=== PATIENT | female | born 1990 | race African-American/Black ===

== ENCOUNTER 2017-12-27 09:10 | Day surgery (SDC) | payer OTHER ==
[2017-12-26 10:29] LABS: HEMATOCRIT 38.5 % (36.0-48.0); MCH 29.2 pg (26.0-34.0); MCHC 33.8 g/dL (31.0-37.0); MCV 86.5 fL (80.0-100.0); MEAN PLATELET VOLUME 9.2 fL (7.4-10.4); RBC 4.45 10x6/uL (4.00-5.40); RDW 13.2 % (11.5-14.5); WBC 6.6 10x3/uL (4.8-10.8)
[~2017-12-27] VITALS: Ht 167.6 cm; Wt 95.3 kg
--- NOTE | ~2017-12-27 | OP ---
PATIENT NAME: FELICIANO LAWRENCE MEDICAL RECORD: [id number] :89 LOCATION:[facility] ADMISSION DATE: SURGEON: GARFIELD MOONEY DO DATE OF OPERATION: 12/27/2017 PROCEDURE PERFORMED: Left knee arthroscopy with medial meniscal repair. PREOPERATIVE DIAGNOSIS: Left knee medial meniscal tear. POSTOPERATIVE DIAGNOSIS: Left knee medial meniscal tear. INDICATIONS: Ms. Lawrence is a 27-year-old female, who presented to my office with an MRI that read medial meniscal tear in the posterior horn of the medial meniscus. She had been experiencing pain, locking, catching and mostly medial-sided pain after a twist injury she thinks, and she is tired of dealing with the pain and says she has pain quite often and wanted something done. After seeing the MRI and discussing this with the patient, I discussed with her we could do a meniscal repair, but she will be nonweightbearing for 6 weeks in order to protect that repair. She is okay with that and consented to the procedure. She is aware of the other risks including infection, bleeding, nerve damage and damage to vessels, need for further surgery. She consented to the same. SURGEON: Garfield Mooney DO DESCRIPTION OF PROCEDURE: The patient was given a block in the preoperative area by anesthesia. The patient was then taken to the operative suite, laid in supine position, and given 2 grams of Ancef. The left lower extremity was prepped and draped in sterile fashion with the tourniquet above the knee under the drapes. Once she was prepped and draped, a time-out was performed, everyone was agreement with correct side and site, patient and procedure. The procedure then began with the knee flexed with marking out the anterolateral portal and using 11 blade to make that portal. The trocar was then entered into the knee. The water was turned on, and the knee was insufflated with normal saline. The suprapatellar pouch was inspected. No loose bodies were seen there. The patella seemed to track well in the trochlear groove. The lateral gutter was inspected and a few loose bodies were seen there, looked what appeared to be a meniscal remnant. The medial gutter was then inspected and then the knee was brought from extension to flexion and the medial joint line was entered. The medial portal was then established with an 18-gauge spinal needle and 11-blade scalpel. A probe was then used to probe the medial meniscus and the tear was seen in the posterior horn of the medial meniscus. There was a peripheral tear. The meniscus was quite mobile at that spot. Then the portals were switched. The viewing portal then went to the medial portal and a slide for the meniscal repair was brought in from the lateral portal and the Fast-Fix was used to put a horizontal mattress type stitch first more anteriorly and then towards the posterior horn approximately 5 mm apart and then it was deployed and cinched down and had a nice tight repair. This repair was probed at that time and seemed very tight and a good repair. The cutter was then slid over the suture and the suture was cut. The meniscus was then again probed and it was not seen to move at all. A power pick was then used in the notch of the femur to cause some bleeding and get some potent cells to the area to enhance healing. This was removed. The water was turned off. The suction was turned on. The excess fluid was removed from the knee. The portals were then closed with 3-0 Monocryl in inverted interrupted fashion. Steri-Strips, ABDs, Telfa, Tegaderm, 4 x 4s, OPERATIVE REPORT [id number] FRANCISCO JAVIER,FELICIANO Webril were then placed on the knee with an [place] wrap over it and GLENDY hose stocking was placed up to the knee. The patient was awakened and taken to recovery in stable condition. No complications. Blood loss was minimal. TRANSINT:[id number] Voice Confirmation ID: [id number] DOCUMENT ID: [id number] GARFIELD MOONEY DO at 0824 CC: [id number] DICTATION DATE: 12/27/17 1548 CAN SORTER: 12/27/172009 [facility] 12/27/17 [facility] [address] [id number]
[~2017-12-27 09:10] MED LIST: DESERYL100 MG PO; EFFEXOR XR150 MG PO; SYNTHROID112 MCG PO
[2017-12-27 11:59] VITALS: BP 118/71; Ht 167.6 cm; Wt 95.3 kg
[2017-12-27 12:01] LABS: HCG URINE NEGATIVE (NEGATIVE)
[2017-12-27] MEDS ORDERED: PERCOCET 7.5/321 TAB PO (15:43)
== END 2017-12-27 18:37 | disposition home or self-care (01) ==
LOC: D.OPS 09:10
PROVIDERS: Anesthesiology; Orthopaedic Surgery
DX: S83.242A Other tear of medial meniscus, current injury, left knee, initial encounter (principal); Z01.812 Encounter for preprocedural laboratory examination